=== PATIENT | female | born 1975 | race Caucasian/White ===

== ENCOUNTER 2023-04-08 09:12 | Emergency (ER) | payer OTHER, SELFPAY ==
[2023-04-08 09:16] VITALS: BP 147/94; PULSE 76; RESP 18; TEMP 36.8; O2SAT 98; BMI 32.8
--- NOTE | 2023-04-08 09:24 | ED.NAVMDI1 ---
HPI - Nausea/Vomiting/Diarrhea General Chief complaint: Nausea/Vomiting/Diarrhea Stated complaint: THYROID MED COMPLICATION Time Seen by Provider: 04/08/23 09:19 Source: patient Mode of arrival: walk-in Limitations: no limitations History of Present Illness HPI Narrative: 48-year-old female presents for nausea and vomiting. It started at 11:00 last night. No family members have been ill. No hematemesis or fever. She has not had diarrhea. She is not complaining to me of abdominal pain. Related Data Home Medications Medication Instructions Recorded Confirmed levothyroxine 100 mcg tablet 50 mcg PO DAILY 04/08/23 04/08/23 losartan 50 mg tablet 50 mg PO DAILY 04/08/23 04/08/23 oxybutynin chloride 10 mg 10 mg PO DAILY 04/08/23 04/08/23 tablet,extended release 24 hr Previous Rx's Medication Instructions Recorded ondansetron 4 mg disintegrating 4 mg PO Q6H PRN nausea and 04/08/23 tablet vomiting #20 tabs Allergies Allergy/AdvReac Type Severity Reaction Status Date / Time acetaminophen [From Percocet] Allergy Intermediate Verified 04/08/23 09:18 oxycodone [From Percocet] Allergy Intermediate Verified 04/08/23 09:18 Review of Systems ROS Narrative A ten point review of systems is negative except as noted above. PFSH PFSH Social History Smoking status: Never smoker Exam Narrative Exam Narrative: Nurses note and vital signs reviewed and patient is not hypoxic. General: The patient appears uncomfortable. She has an emesis basin beside her. Skin: Warm, dry, no pallor noted. There is no rash noted. Head: Normocephalic, atraumatic Eye: Normal conjunctiva, no drainage Ears, Nose, Mouth, and Throat: oral mucosa is moist. Nares patent. Cardiovascular: Regular Rate and Rhythm Respiratory: Patient is in no distress, no accessory muscle use, lungs are clear to auscultation, no wheezing, rales or rhonchi Back: non-tender GI: soft and nontender Musculoskeletal: The patient has no evidence of calf tenderness, no pitting edema, symmetrical pulses noted bilaterally Neurological: A&O, normal speech Psychiatric: Cooperative Constitutional Vital Signs, click to edit/add: Last Vital Signs Temp 98.3 F 04/08/23 09:16 Pulse 76 04/08/23 09:16 Resp 18 04/08/23 09:16 BP 147/94 H 04/08/23 09:16 Pulse Ox 98 04/08/23 09:16 O2 Del Method Room Air 04/08/23 09:16 Course Vital Signs Vital signs: Vital Signs Temperature 98.3 F 04/08/23 09:16 Pulse Rate 76 04/08/23 09:16 Respiratory Rate 18 04/08/23 09:16 Blood Pressure 147/94 H 04/08/23 09:16 Pulse Oximetry 98 04/08/23 09:16 Oxygen Delivery Method Room Air 04/08/23 09:16 Temperature 98.3 F 04/08/23 09:16 Pulse Rate 76 04/08/23 09:16 Respiratory Rate 18 04/08/23 09:16 Blood Pressure 147/94 H 04/08/23 09:16 Pulse Oximetry 98 04/08/23 09:16 Oxygen Delivery Method Room Air 04/08/23 09:16 MDM - Nausea/Vomiting/Diarrhea MDM Narrative Medical decision making narrative: Blood work is nonspecific. She is not . She was given IV fluids and IV Zofran and is discharged home on Zofran. Findings are discussed with the patient and her . Differential Diagnosis Differential diagnosis: Likely food poisoning, gastroenteritis and dehydration Lab Data Attestation: I reviewed the patient's lab results. Labs: Lab Results 04/08/23 Range/Units 09:29 WBC 11.8 H (4.0-11.0) 10^3/uL RBC 4.15 L (4.20-5.40) 10^6/uL Hgb 12.1 (12.0-16.0) g/dL Hct 36.4 (36.0-48.0) % MCV 87.7 (81.0-99.0) fL MCH 29.2 (26.7-34.0) pg MCHC 33.2 (29.9-35.2) g/dL RDW 13.5 (11.0-15.0) % Plt Count 318 (150-450) 10^3/uL MPV 9.2 L (9.5-13.5) fL Neut % (Auto) 78.9 H (43.0-75.0) % Lymph % (Auto) 13.9 L (20.5-60.0) % [place] % (Auto) 5.5 (1.7-12.0) % Eos % (Auto) 0.7 L (0.9-7.0) % Baso % (Auto) 0.3 (0.2-2.0) % Neut # (Auto) 9.3 H (1.4-6.5) 10^3/uL Lymph # (Auto) 1.6 (1.2-3.8) 10^3/uL [place] # (Auto) 0.7 (0.3-0.8) 10^3/uL Eos # (Auto) 0.1 (0.0-0.7) 10^3/uL Baso # (Auto) 0.0 (0.0-0.1) 10^3/uL Abs Immat Gran (auto) 0.08 H (0.00-0.03) 10^3/uL Imm/Tot Granulo (auto) 0.7 H (0.0-0.5) % Sodium 142 (136-145) mmol/L Potassium 3.8 (3.5-5.1) mmol/L Chloride 106 (98-107) mmol/L Carbon Dioxide 23.7 (21.0-32.0) mmol/L Anion Gap 16.1 BUN 8.0 (7.0-18.0) mg/dL Creatinine 0.76 (0.55-1.02) mg/dL Est GFR ( Amer) >60 (>=60) Est GFR (Non-Af Amer) >60 (>=60) BUN/Creatinine Ratio 10.5 Glucose 100 (74-106) mg/dL Calcium 8.7 (8.5-10.1) mg/dL Discharge Plan Discharge Chief Complaint: Nausea/Vomiting/Diarrhea Clinical Impression: Nausea and vomiting Patient Disposition: Home, Self-Care Time of Disposition Decision: 12:01 Condition: Good Mode of Transportation: Private Vehicle Prescriptions / Home Meds: New ondansetron 4 mg tablet,disintegrating 4 mg PO Q6H PRN (Reason: nausea and vomiting) Qty: 20 0RF No Action levothyroxine 100 mcg tablet 50 mcg PO DAILY losartan 50 mg tablet 50 mg PO DAILY oxybutynin chloride 10 mg tablet extended release 24hr 10 mg PO DAILY Instructions: Acute Nausea and Vomiting (ED) Stand Alone Forms: Portal Instructions Referrals: MIN AMBRIZ [Primary Care Provider] - 1 week
[2023-04-08] MEDS: ONDANSETRON PF 4 MG/2 ML VIAL IV ×2 (09:33→10:52)
[2023-04-08] MEDS: 0.9 % SODIUM CHLORIDE 1,000 ML 1000 ML IV ×2 (09:33→10:52)
[2023-04-08 09:42] LABS: Basophils Percent Auto 0.3 % (0.2-2.0); Eosinophils Absolute Auto 0.1 10^3/uL (0.0-0.7); Eosinophils Percent Auto 0.7 % (0.9-7.0); Hematocrit 36.4 % (36.0-48.0); Hemoglobin 12.1 g/dL (12.0-16.0); Immature Granulocytes Abs Auto 0.08 10^3/uL (0.00-0.03); Immature Granulocytes Pct Auto 0.7 % (0.0-0.5); Lymphocytes Absolute Auto 1.6 10^3/uL (1.2-3.8); Lymphocytes Percent Auto 13.9 % (20.5-60.0); Mean Corpuscular HGB Conc 33.2 g/dL (29.9-35.2); Mean Corpuscular Hemoglobin 29.2 pg (26.7-34.0); Mean Corpuscular Volume 87.7 fL (81.0-99.0); Mean Platelet Volume 9.2 fL (9.5-13.5); Monocytes Absolute Auto 0.7 10^3/uL (0.3-0.8); Monocytes Percent Auto 5.5 % (1.7-12.0); Neutrophils Absolute Auto 9.3 10^3/uL (1.4-6.5); Neutrophils Percent Auto 78.9 % (43.0-75.0); Platelet Count 318 10^3/uL (150-450); Red Blood Count 4.15 10^6/uL (4.20-5.40); Red Cell Distribution Width 13.5 % (11.0-15.0); White Blood Count 11.8 10^3/uL (4.0-11.0)
[2023-04-08 09:53] LABS: Anion Gap 16.1; BUN Creatinine Ratio 10.5; Calcium 8.7 mg/dL (8.5-10.1); Carbon Dioxide 23.7 mmol/L (21.0-32.0); Chloride 106 mmol/L (98-107); Estimated GFR (African America >60 (>=60); Estimated GFR (Non-African Ame >60 (>=60); Glucose 100 mg/dL (74-106); Potassium 3.8 mmol/L (3.5-5.1); Sodium 142 mmol/L (136-145)
== END 2023-04-08 12:11 | disposition home or self-care (01) ==
PROVIDERS: Emergency Provider Emergency Medicine; PCP Family Medicine
DX: R11.2 Nausea with vomiting, unspecified (principal); Z79.899 Other long term (current) drug therapy; Z79.890 Hormone replacement therapy
CPT/HCPCS: 36415; 80048; 85025; 96361; 96374; 96376; 99284; J2405